=== PATIENT | female | born 1950 | race Caucasian/White ===

== ENCOUNTER 2016-08-15 15:49 | Inpatient (IN) | payer BC ==
--- NOTE | ~2016-08-15 | DS ---
Discharge Summary [facility] [address] [place]. [address] NAME: ALONSO RODRIGUEZ : 50 STATUS : DIS IN PAT#: [id number] AGE: 65 ADM/REG DATE : 08/15/16 MR#: [id number] REPORT SERV DATE: 08/27/16 DICTATED BY: JIMMY VILLALOBOS DATE: 08/26/16 REPORT STATUS : Draft TRANSCRIBED BY: SHLOMO DATE: 08/26/16 Data Collection from hospitalization DISCHARGE DIAGNOSES: 1. ST-elevation myocardial infarction-acute. 2. Coronary artery disease. 3. Hypertension. 4. Osteoarthritis. 5. Gout. 6. Tobacco abuse. CONSULTATION: Dr. Xiang Menchaca. PROCEDURES PERFORMED: 1. Cardiac catheterization, 08/15/2016. 2. Median sternotomy, extracorporeal circulation, emergent coronary artery bypass grafting x3, reverse greater saphenous vein graft to the obtuse marginal #1, reverse greater saphenous vein graft to the posterior descending artery, reverse greater saphenous vein graft to the posterolateral branch, transesophageal echocardiogram, endoscopic vein harvest from the right leg, rigid external fixation of the sternum, Prevena dressing placement, 08/16/2016. MEDICATIONS: ProAir two puffs via inhaler every four hours as needed, Cordarone 200 mg daily, artificial tears one to two drops as needed for dry eyes, Ecotrin 325 mg daily, Lipitor 80 mg at bedtime, Plavix 75 mg daily, colchicine 0.6 mg as needed, Diflucan 150 mg as instructed, [place] 10/325 one tablet every six hours as needed, Claritin 10 mg daily, Toprol-XL 25 mg daily, Theragran-M one tablet daily, Sterapred DS as instructed. CONDITION AT DISCHARGE: Stable. DISPOSITION: The patient was discharged home on a low-sodium, low-cholesterol, cardiac diet with activities as instructed. She would follow up with Dr. Xiang Menchaca, 09/08/[address] Jimmy Villalobos, 09/15/2016. She would follow up with Dr. Adilson Pop, 09/08/2016 and would follow up at [facility], 09/30/2016. HOSPITAL COURSE: This is a 65-year-old female, who had been seen in April of this year with severe hypertension, tobacco use, and tachycardia. She was advised to stop smoking and have a cardiac workup performed, including an echocardiogram as well as a nuclear stress test. The patient was seen by Dr. Xiang Menchaca. She had been started on clonidine. The patient had admitted that she hates doctors, dentist, and [facility]. She was concerned that she had some type of serious underlying cardiac problem and was afraid to deal with it. She came to the hospital at this time after developing the sudden onset of upper chest discomfort radiating to both arms while shopping with her daughter. She went home and tried lying down to rest and the symptoms did not improve. EMS was called. They gave her oxygen and sublingual nitroglycerin and her symptoms promptly subsided. Her EKG was negative. In the emergency room, she was given additional nitrates for ongoing chest complaints. She was currently pain free, but very anxious. She was felt to have had a non- ST-elevation myocardial infarction. It was felt that she would need to undergo a cardiac Discharge Summary [address] [address] NAME: ALONSO RODRIGUEZ : 50 STATUS : DIS IN PAT#: [id number] AGE: 65 ADM/REG DATE : 08/15/16 MR#: [id number] REPORT SERV DATE: 08/27/16 DICTATED BY: JIMMY VILLALOBOS DATE: 08/26/16 REPORT STATUS : Draft TRANSCRIBED BY: SHLOMO DATE: 08/26/16 catheterization. She was admitted to the hospital at this time for further evaluation and treatment. Upon admission, beta-aftab was continued with Lopressor. Xanax was added for anxiety controlled. She claims that she is prone to have a panic attack under certain conditions. She was taken to the cardiac dental laboratory supervisor by Dr. David Brown, where she underwent the above-mentioned procedure. She tolerated this well and there were no complications. The cardiac catheterization revealed severe two-vessel disease with thrombus in the right coronary artery and near-complete occlusion of the right coronary artery as well. She was placed back on heparin and nitroglycerin. Her chest pain continued. She had ongoing chest pain with ST-segment changes. It was felt that the patient would need to undergo coronary artery bypass grafting. She was taken to the operating room, where she underwent the above- mentioned procedure. She tolerated this well and there were no complications. On postop day one, there were no major issues off pressors. She was up sitting in a chair. She had decreased urine output. She had minimal response to diuretics overnight. Blood pressure was controlled. Over the next couple of days, she continued to progress. There was not much output from the mediastinal drains. Pacing wires and mediastinal drain were discontinued. We encouraged her to mobilize. FiO2 was being weaned. Discharge planning was performed. Her rhythm was stable. She was able to mobilize independently. On 08/20/2016, she had no major issues. She did complain of pain in the right big toe. Potassium level was low secondary to diuresis. She continued to do well. We encouraged her to stop smoking. Discharge instructions were given. Due to her improved and stable condition, she was discharged home with the above-stated instructions. Information collected by: Gabby Longoria I submit the above information as my discharge summary. TG/MODL Jimmy Villalobos MD / [id number] CC: Justina Jimenez BRITTANY BAXTER
--- NOTE | ~2016-08-15 | OP ---
Record Of Operation [facility] [address] [place]. [address] NAME: ALONSO RODRIGUEZ : 50 STATUS : ADM IN PAT#: [id number] AGE: 65 ADM/REG DATE : 08/15/16 MR#: [id number] REPORT SERV DATE: 08/16/16 DICTATED BY: JIMMY VILLALOBOS DATE: 08/16/16 REPORT STATUS : Draft TRANSCRIBED BY: MODL DATE: 08/16/16 DATE OF PROCEDURE: 08/16/2016 PREOPERATIVE DIAGNOSES: 1. ST elevation myocardial infarction. 2. Severe two-vessel coronary artery disease. 3. Hypertension. 4. Hyperlipidemia. 5. Tobacco abuse. 6. Morbid obesity. POSTOPERATIVE DIAGNOSES: 1. ST elevation myocardial infarction. 2. Severe two-vessel coronary artery disease. 3. Hypertension. 4. Hyperlipidemia. 5. Tobacco abuse. 6. Morbid obesity. OPERATION PROCEDURE PERFORMED: 1. Median sternotomy. 2. Extracorporeal circulation. 3. Emergent coronary artery bypass grafting x3, reverse greater saphenous vein graft to obtuse marginal #1, reverse greater saphenous vein graft to posterior descending artery, reverse greater saphenous vein graft to posterolateral branch. 4. UMM. 5. Endoscopic vein harvest, right leg. 6. Rigid external fixation of the sternum. 7. Prevena dressing placement. SURGEONS: Jimmy Villalobos MD ASSISTANTS: Jose Amezcua. ANESTHESIOLOGIST: Kobe Aviles M.D. COMPLICATIONS: None. TUBES AND DRAINS: A 32 straight chest tube under the sternum, ventricular pacing wires. POSTOPERATIVE CONDITION: Stable to CVICU. INTRAOPERATIVE FINDINGS: Transesophageal echo, there was normal function, trace MR, no AI, no in intraoperative findings. There was no LAD disease, therefore, the ROBERTSON was not used. Record Of [facility] [address] [place]. [address] NAME: ALONSO RODRIGUEZ : 50 STATUS : ADM IN PAT#: [id number] AGE: 65 ADM/REG DATE : 08/15/16 MR#: [id number] REPORT SERV DATE: 08/16/16 DICTATED BY: JIMMY VILLALOBOS DATE: 08/16/16 REPORT STATUS : Draft TRANSCRIBED BY: MODL DATE: 08/16/16 DETAILS OF CARDIOPULMONARY BYPASS GRAFTIN. Graft #1; reverse greater saphenous vein graft to obtuse marginal #1, this was 1.5 mm target. 2. Graft #2; reverse greater saphenous vein graft to posterior descending artery. This was diffusely diseased 2 mm target. 3. Graft #3; reverse greater saphenous vein graft to posterolateral branch. This was 2 mm excellent target. The PDA was diffusely diseased. There were excellent Doppler signals pre and post protamine. DETAILS OF STERNAL PLATING: Three sternal plates were used. One 100 degree plate in the manubrium, four 16 mm screws were used. One X plate on the sternum, eight 14 mm screws were used. One box plate, four 14 mm screws were used. INDICATIONS FOR PROCEDURE: Ms. Rodriguez is a 65-year-old, morbidly obese, smoker, with hypertension, and hyperlipidemia, who presented to the hospital with what appeared to be a STEMI. She had ongoing chest pain with a rise in her troponin and was taken urgently to the laborer tanbark. Cardiac catheterization revealed severe two=vessel disease with thrombus in the right coronary artery and a near complete occlusion of the right coronary artery as well. She was placed back on heparin and nitroglycerin, her chest pain continued and she had ongoing pain with ST-segment changes. A decision was made therefore for the patient to go to the operating room. The patient was seen and evaluated. Risks, benefits, and alternatives were discussed including, but not limited to, bleeding, infection, stroke, , heart attack, need for future operations. All questions were answered. Her STS morbidity and mortality scores were discussed with her as well. The total mortality less than 5%, total morbidity less than 20%. DETAILS OF PROCEDURE: The patient was brought to the operating room, placed supine on the operating room table. After satisfactory induction of general endotracheal anesthesia, she was prepped and draped in usual sterile fashion. Working simultaneously, a median sternotomy was performed while endoscopic vein harvest was performed from the right leg. Skin and subcutaneous tissues were divided, clavipectoral fascia was divided. The sternum was divided in the midline, sternal saw was used for that. Hemostasis was obtained along the sternal edges. A sternal retractor was placed. Thymic tissue was divided up to the innominate vein. Pericardium was opened in the midline and along the diaphragm. Pericardial well was created. Systemic heparinization was achieved. Ascending aortic cannulation was achieved through dual pursestring at the base of the innominate artery. Dual stage venous cannula was placed through a pursestring in the right atrial appendage. Antegrade root vent cardioplegia tack was placed. The vein was brought up, inspected, and prepared for bypass. Cardiopulmonary bypass was initiated after documentation of an adequate ACT. The targets were inspected. The targets were as mentioned in the findings. The cross-clamp was brought up, the heart was arrested with cold antegrade cardioplegia, switching to cold antegrade cardioplegia every 15 to 20 minutes throughout the remainder of cross clamp. The grafts were performed as follows; saphenous vein grafts were anastomosed to the PDA, the PLV, and the obtuse marginal #1 using 8-0 Surgipro. The proximal anastomoses were performed after filling the heart, cutting the vein to length, spatulating, and proximal aortotomies were performed with 11 blade and a 5.2 mm punch. The proximal anastomoses were constructed with 6-0 Prolene and vein markers were placed. The grafts were Record Of Operation [address] [place]. [address] NAME: ALONSO RODRIGUEZ : 50 STATUS : ADM IN PAT#: [id number] AGE: 65 ADM/REG DATE : 08/15/16 MR#: [id number] REPORT SERV DATE: 08/16/16 DICTATED BY: JIMMY VILLALOBOS DATE: 08/16/16 REPORT STATUS : Draft TRANSCRIBED BY: SHLOMO DATE: 08/16/16 de-aired. The cross-clamp was removed. Ventricular pacing wires were placed and the patient returned to normal sinus rhythm, she was able to be weaned from cardiopulmonary bypass without incident. She was weaned on 5 mcg/kilogram/minute of dobutamine. The dobutamine was weaned to 2.5. Protamine was administered. The patient was decannulated. All cannulation sites were oversewn with 4-0 Prolene. Hemostasis was obtained. The pericardium was unable to be closed. The aortic tissue was closed over the ascending aorta. A 32-Tongan chest tube was placed under the sternum. The sternum was brought back together with stainless steel sternal wires, some of these were double wires. The pectoral fascial flaps were raised in order to allow the SternaLock Jerome plate to be placed. A 100 degree plate was placed in the manubrium, an X plate, and a box plate were placed in the body of the sternum. 14 mm screws were used for the sternum, 16 mm screws were used for manubrium. Clavipectoral fascia was reapproximated using a running #1 StrataFix. Subcutaneous tissues were closed using running #1 StrataFix. The skin closed with 2-0 Quill. Prevena dressing was placed. The patient was transferred to CVICU in critical, stable condition. [facility]MC/MODL Jimmy Villalobos MD / [id number] CC: Xiang Menchaca D.O.
--- NOTE | ~2016-08-15 | HP ---
History And Physical [place] [id number] [place]. [address] NAME: ALONSO RODRIGUEZ : 50 STATUS : ADM IN [facility]#: [id number] AGE: 65 ADM/REG DATE : 08/15/16 MR#: [id number] REPORT SERV DATE: 08/16/16 DICTATED BY: XIANG MENCHACA DATE: 08/16/16 REPORT STATUS : Draft TRANSCRIBED BY: SHLOMO DATE: 08/16/16 DATE OF ADMISSION: 08/15/2016 REASON FOR ADMISSION: Non-STEMI. HISTORY OF PRESENT ILLNESS: A 65-year-old patient who I saw for the first time as a new patient back on 04/23 of this year. At that time, she had severe hypertension, was smoking, was tachycardic, and she was advised to quit smoking and have cardiac workup performed including an echocardiogram as well as a nuclear stress test. I also started her on clonidine 0.1 b.i.d. She readily admits that she "hates doctors and dentists and the Healthcare System and she is concerned that she has some type of serious underlying cardiac problem and is afraid to deal with it." She came to the hospital after developing sudden onset of upper chest discomfort radiating to both arms while shopping with her daughter. She went home tried laying down to rest and symptoms did not improve, so EMS was called. They gave her oxygen and sublingual nitroglycerin and her symptoms promptly subsided. Her EKG is negative. In the emergency room, she was given additional nitrates for ongoing chest complaints and admitted to the Hospitalist Service. She is currently pain free, but very anxious. She tells me she did not tolerate the clonidine well at all developing severe bilateral shoulder and knee pain. PAST SURGICAL HISTORY: Cholecystectomy, tonsillectomy, adenoidectomy, bilateral tubal ligation. She has had D+C x2. She has had bilateral carpal tunnel surgeries. PAST MEDICAL HISTORY: 1. Hypertension. 2. Ongoing smoking. She has about a 50-year smoking history, was smoking three packs per day at her peak, then subsequently cut back to two packs per day, now it is currently one-half pack per day. 3. Unknown cholesterol status. 4. Osteoarthritis. She had severe neck pain, has to sleep on her left side. She relies on big doses of Motrin. When I first met her, she was taking 800 mg of Motrin t.i.d. daily. I advised her of the possible adverse affects of that regimen, so she cut back to 800 b.i.d. The patient subsequently called my office and canceled her appointments. She was afraid that they would be abnormal and further testing would be needed. SOCIAL HISTORY: She is originally from [place]. She smokes. Denies alcohol. Denies illicit drugs. Currently living at her daughter's house. MEDICATIONS: Pnks-zvv-tthqcer medicines include Motrin. The patient is . History And Physical [address] [place]. [address] NAME: ALONSO RODRIGUEZ : 50 STATUS : ADM IN [facility]#: [id number] AGE: 65 ADM/REG DATE : 08/15/16 MR#: [id number] REPORT SERV DATE: 08/16/16 DICTATED BY: XIANG MENCHACA DATE: 08/16/16 REPORT STATUS : Draft TRANSCRIBED BY: SHLOMO DATE: 08/16/16 I reviewed her chart. We discussed the case with the patient's nurse, Manish. PHYSICAL EXAMINATION: VITAL SIGNS: Blood pressure 170/81, heart rate 100. GENERAL: Pleasant overweight, in no distress. HEENT: Unremarkable. NECK: The neck veins are flat. No bruits. No meningismus. LUNGS: Clear. CARDIAC: Heart sounds are regular. No obvious murmur. She does have some end-expiratory wheezing on auscultation of her back. She does use a ProAir inhaler, which is not on her list currently. EKG was reviewed. IMPRESSION: 1. Xmp-KT-huneffhdl myocardial infarction. 2. Anxiety syndromes. 3. Noncompliance due to anxiety syndrome. 4. Heavy tobacco history. 5. Multiple risk factors for coronary artery disease. 6. Poorly controlled hypertension. 7. Obesity. PLAN: Echocardiogram and subsequently left heart catheterization on Wednesday. Check carotids as well. Add Procardia XL. Continue beta-aftab with Lopressor 50 q.6h for now and add some Xanax for anxiety control. She claims that she is prone to have a "panic attack" under certain conditions. We did discuss the risks, benefits, techniques of a cardiac catheterization despite her reluctance to want to hear the details. She tells me that if she knows how the test is performed, she is likely to have a panic attack. I told her it was medical legally important to for her to understand what procedure she was about to undergo and I could not proceed unless she would listen and agree. She eventually did. PCP is Martha Shaver. I originally saw this patient back in April and she was referred to me for management of hypertension and evaluation of cardiac complaints. She had a bronchitic cough at that time. She told me that she had 14 siblings and two with heart problems. She reports multiple allergies primarily to antibiotics, sulfa, Augmentin, Cefzil, and does not tolerate clonidine well. She also reports a Levaquin allergy. When I saw her in the office, her blood pressure of 168/110 with a heart rate of 109, BMI was 38. SAT/SHLOMO Xiang Menchaca D.O. History And Physical [address] [address] NAME: ALONSO RODRIGUEZ : 50 STATUS : ADM IN [facility]#: [id number] AGE: 65 ADM/REG DATE : 08/15/16 MR#: [id number] REPORT SERV DATE: 08/16/16 DICTATED BY: XIANG MENCHACA DATE: 08/16/16 REPORT STATUS : Draft TRANSCRIBED BY: SHLOMO DATE: 08/16/16 / [id number] CC: Xiang Menchaca D.O.
--- NOTE | ~2016-08-15 | OP ---
Record Of Operation [facility] [address] [place]. [address] NAME: ALONSO RODRIGUEZ : 50 STATUS : ADM IN PAT#: [id number] AGE: 65 ADM/REG DATE : 08/15/16 MR#: [id number] REPORT SERV DATE: 08/16/16 DICTATED BY: RENETTA BROWN DATE: 08/16/16 REPORT STATUS : Draft TRANSCRIBED BY: MODNola DATE: 08/16/16 DATE OF PROCEDURE: 08/15/2016 CARDIAC CATHETERIZATION REPORT CAKE MAKER: Renetta Brown M.D. INDICATION FOR PROCEDURE: Acute myocardial infarction. POSTOPERATIVE INDICATION: Acute myocardial infarction. DESCRIPTION OF PROCEDURE: The patient was brought to the superintendent geophysical laboratory in a postabsorptive state with informed consent signed for cardiac catheterization. The right inguinal area was sterilely draped and prepped. Local anesthesia was accomplished with Xylocaine. A 6-Ukrainian sheath was placed in the right femoral artery without difficulty. Using a 4 left Joseph catheter and subsequently a 4 right Joseph catheter, the coronary arteries were selected and engaged angiographically. Then, using a 6-Ukrainian pigtail catheter, a left ventriculogram was performed utilizing 12 mL per second for 3 seconds for a total of 36 mL of Isovue, and angiographically in the single . End of the procedure, the catheter was affixed in place, and the patient was transferred to the CCU on a nitroglycerin drip. HEMODYNAMICS: The patient's left ventricular end-diastolic pressure was measured at 32 mmHg. Hemodynamics were otherwise normal, there was no gradient or pullback across the aortic valve. Coronary arteriograms: The left main coronary artery was normal. The left anterior descending artery had luminal irregularities only. The left circumflex artery demonstrated a proximal 90% stenosis, but with ADELINA-3 flow. No other blockages were noted. The right coronary artery, which was a large dominant vessel, but was normal in its proximal portion, but had a 90% mid-vessel lesion, with what appeared to be thrombus associated. More distal, there was a discrete 90% lesion, and then subsequently another discrete 80% to 90% lesion at the bifurcation. Left ventriculogram demonstrated ejection fraction of 65% with inferior wall hypokinesis. IMPRESSION: Severe two-vessel coronary artery disease, with preserved left ventricular function. The patient was pain-free, stable blood pressure and heart rate, and rhythm was stable. The decision was made to continue the patient on nitroglycerin, by continuos infusion, remove the sheaths, resume heparin, and aggressive control of the heart rate and blood pressure on beta-blockers. Consultation was obtained with Dr. Demarco for consideration of coronary artery bypass grafting evaluation in the a.m. TR/MODL Record Of [address] [address] NAME: ALONSO RODRIGUEZ : 50 STATUS : ADM IN PAT#: [id number] AGE: 65 ADM/REG DATE : 08/15/16 MR#: [id number] REPORT SERV DATE: 08/16/16 DICTATED BY: RENETTA BROWN DATE: 08/16/16 REPORT STATUS : Draft TRANSCRIBED BY: SHLOMO DATE: 08/16/16 Renetta Brown M.D. / [id number] CC: Xiang Menchaca D.O.
[2016-08-15 16:24] LABS: BASOPHILS 0.5 %; BASOPHILS ABSOLUTE 0.06 10/3/uL (0.0-0.16); EOSINOPHILS 0.4 %; EOSINOPHILS ABSOLUTE 0.05 10/3/uL (0.0-0.53); HEMATOCRIT 38.1 % (36.0-48.0); HEMOGLOBIN 13.3 g/dL (12.0-16.0); IMMATURE GRANULOCYTES 0.3 %; IMMATURE GRANULOCYTES ABSOLUTE 0.04 10/3/uL (0.0-0.11); LYMPHOCYTES 13.4 %; LYMPHOCYTES ABSOLUTE 1.58 10/3/uL (0.67-4.30); MANUAL DIFF NO %; MEAN CORPUS HGB CONC 34.9 g/dL (32.0-36.0); MEAN CORPUSCULAR HEMOGLOB 31.8 pg (26.0-34.0); MEAN CORPUSCULAR VOLUME 91.1 fL (80-100); MEAN PLATELET VOLUME 9.9 fL (9.2-13.0); MONOCYTES 4.9 %; MONOCYTES ABSOLUTE 0.58 10/3/uL (0.21-1.20); NEUTROPHILS 80.5 %; NEUTROPHILS ABSOLUTE 9.48 10/3/uL (2.02-8.40); PLATELET COUNT 468 10/3/uL (150-400); RBC DISTRIBUTION WIDTH 12.9 % (12.0-16.0); RED CELL COUNT 4.18 10/6/uL (4.0-5.6); WHITE BLOOD CELLS 11.8 10/3/uL (4.5-10.5)
[2016-08-15 16:32] LABS: INTERNATIONAL NORMAL RATI 1.1 UNITS (-); PARTIAL THROMBO TIME 31.4 SEC (22.5-37.2); PROTIME (NOT ORD) 13.7 SEC (12.0-14.5)
[2016-08-15 16:42] LABS: BUN (BLOOD UREA NITROGEN) 14 MG/DL (6-23); CALCIUM, SERUM 9.6 MG/DL (8.5-10.4); CHEST PAIN PROFILE TAT 0 Hrs 22 Mins; CHLORIDE, SERUM 102 MMOL/L (96-112); CO2 (CARBON DIOXIDE) 28 MMOL/L (24-34); CREATININE 0.73 MG/DL (0.55-1.02); GFR AFRICAN AMERICAN 100 ML/MIN (>=60); GFR NON AFRICAN AMERICAN 86 ML/MIN (>=60); GLUCOSE, SERUM 108 MG/DL (60-99); POTASSIUM, SERUM 4.4 MMOL/L (3.5-5.3); SODIUM, SERUM 136 MMOL/L (135-148); TROPONIN I 1.11 NG/ML (<0.05)
[2016-08-15] MEDS ORDERED: EDARBI80 MG PO (17:14)
[2016-08-15] MEDS ORDERED: CLARIT10 PO (17:14)
[2016-08-15] MEDS ORDERED: IBU800 PO (17:14)
[2016-08-15] MEDS ORDERED: PROAIR HFA INH (17:15)
[2016-08-15] MEDS ORDERED: THERGRANM PO (17:15)
[2016-08-15] MEDS ORDERED: REFRESH OPH SO0.3 ML OPH (17:17)
[2016-08-15 23:15] LABS: BASOPHILS 0.3 %; BASOPHILS ABSOLUTE 0.04 10/3/uL (0.0-0.16); EOSINOPHILS 0.2 %; EOSINOPHILS ABSOLUTE 0.02 10/3/uL (0.0-0.53); HEMATOCRIT 35.4 % (36.0-48.0); HEMOGLOBIN 12.6 g/dL (12.0-16.0); IMMATURE GRANULOCYTES 0.4 %; IMMATURE GRANULOCYTES ABSOLUTE 0.05 10/3/uL (0.0-0.11); LYMPHOCYTES 16.8 %; LYMPHOCYTES ABSOLUTE 2.19 10/3/uL (0.67-4.30); MEAN CORPUS HGB CONC 35.6 g/dL (32.0-36.0); MEAN CORPUSCULAR HEMOGLOB 32.5 pg (26.0-34.0); MEAN CORPUSCULAR VOLUME 91.2 fL (80-100); MEAN PLATELET VOLUME 9.9 fL (9.2-13.0); MONOCYTES 4.6 %; NEUTROPHILS 77.7 %; NEUTROPHILS ABSOLUTE 10.14 10/3/uL (2.02-8.40); PLATELET COUNT 485 10/3/uL (150-400); RBC DISTRIBUTION WIDTH 12.8 % (12.0-16.0); RED CELL COUNT 3.88 10/6/uL (4.0-5.6)
[2016-08-15 23:19] LABS: MANUAL DIFF NO %
[2016-08-15 23:31] LABS: BUN (BLOOD UREA NITROGEN) 13 MG/DL (6-23); CALCIUM, SERUM 9.2 MG/DL (8.5-10.4); CHLORIDE, SERUM 99 MMOL/L (96-112); CK-MB 54.1 NG/ML; CO2 (CARBON DIOXIDE) 28 MMOL/L (24-34); CPK 545 U/L (0-200); CREATININE 0.74 MG/DL (0.55-1.02); GFR AFRICAN AMERICAN 99 ML/MIN (>=60); GFR NON AFRICAN AMERICAN 85 ML/MIN (>=60); POTASSIUM, SERUM 4.4 MMOL/L (3.5-5.3); SODIUM, SERUM 134 MMOL/L (135-148)
[2016-08-15 23:32] LABS: CKMB INDEX (NOT ORD) 9.9; GLUCOSE, SERUM 142 MG/DL (60-99); TROPONIN I 9.68 NG/ML (<0.05)
[2016-08-16 03:57] LABS: BASOPHILS 0.4 %; BASOPHILS ABSOLUTE 0.04 10/3/uL (0.0-0.16); EOSINOPHILS 0.3 %; EOSINOPHILS ABSOLUTE 0.03 10/3/uL (0.0-0.53); HEMATOCRIT 35.1 % (36.0-48.0); HEMOGLOBIN 12.3 g/dL (12.0-16.0); IMMATURE GRANULOCYTES 0.4 %; IMMATURE GRANULOCYTES ABSOLUTE 0.04 10/3/uL (0.0-0.11); LYMPHOCYTES 20.9 %; LYMPHOCYTES ABSOLUTE 2.36 10/3/uL (0.67-4.30); MANUAL DIFF NO %; MEAN CORPUSCULAR HEMOGLOB 32.2 pg (26.0-34.0); MEAN CORPUSCULAR VOLUME 91.9 fL (80-100); MEAN PLATELET VOLUME 10.2 fL (9.2-13.0); MONOCYTES 7.4 %; MONOCYTES ABSOLUTE 0.84 10/3/uL (0.21-1.20); NEUTROPHILS 70.6 %; NEUTROPHILS ABSOLUTE 7.98 10/3/uL (2.02-8.40); PLATELET COUNT 483 10/3/uL (150-400); RBC DISTRIBUTION WIDTH 12.9 % (12.0-16.0); RED CELL COUNT 3.82 10/6/uL (4.0-5.6); WHITE BLOOD CELLS 11.3 10/3/uL (4.5-10.5)
[2016-08-16 04:10] LABS: CHOL/HDL RATIO(NOT ORDER) 5.3 (0-5); CHOLESTEROL 191 MG/DL (< 200); HDL CHOLESTEROL 36 MG/DL (> 49); LDL CHOLESTEROL 93 MG/DL (< 130); NON-HDL CHOLESTEROL 155 MG/DL (< 160); SGPT(ALT) 36 U/L (5-65); TRIGLYCERIDE 311 MG/DL (< 150)
[2016-08-16 07:28] LABS: INTERNATIONAL NORMAL RATI 1.1 UNITS (-); PROTIME (NOT ORD) 14.3 SEC (12.0-14.5)
[2016-08-16 08:43] LABS: A/G RATIO 0.9 (0.7-1.9); ALBUMIN 3.1 G/DL (3.5-5.0); ALKALINE PHOSPHATASE 61 U/L (45-117); CALCIUM, SERUM 9.1 MG/DL (8.5-10.4); CREATININE 0.75 MG/DL (0.55-1.02); GFR AFRICAN AMERICAN 97 ML/MIN (>=60); GFR NON AFRICAN AMERICAN 84 ML/MIN (>=60); GLOBULIN 3.4 G/DL (2.5-4.1); GLUCOSE, SERUM 122 MG/DL (60-99); IRON BINDING CAPACITY 278 MCG/DL (225-410); SGOT(AST) 95 U/L (5-40); TOTAL BILIRUBIN 0.5 MG/DL (0-1.2); TOTAL PROTEIN 6.5 G/DL (6.0-8.5)
[2016-08-16 08:49] LABS: BUN (BLOOD UREA NITROGEN) 13 MG/DL (6-23); CHLORIDE, SERUM 100 MMOL/L (96-112); CO2 (CARBON DIOXIDE) 24 MMOL/L (24-34); POTASSIUM, SERUM 4.5 MMOL/L (3.5-5.3); SODIUM, SERUM 135 MMOL/L (135-148)
[2016-08-16 09:39] LABS: BE (BASE EXCESS) -4.3 MEQ/L (0 +/- 2.5); CARBOXYHEMOGLOBIN 0.3 % (0-3); HCO3 (ACTUAL BICARBONATE) 20.4 MEQ/L (23-27); HEMOBLOGIN CONTENT 10.3 G/DL (12-16); INSTRUMENT SERIAL # 11843; METHEMOGLOBIN 0.8 % (0-3); MODE SIMV; O2 CONTENT 15.3 VOL% (18-24); PCO2 (CO2 TENSION) 36 MMHG (35-45); PO2 (O2 TENSION) 428 MMHG (79-93); SAMPLE Arterial; TIDAL VOLUME 650 ML; pH 7.37 (7.37-7.43)
[2016-08-16 11:25] LABS: HEMATOCRIT 26.9 % (36.0-48.0); HEMOGLOBIN 9.4 g/dL (12.0-16.0)
[2016-08-16 11:28] LABS: INTERNATIONAL NORMAL RATI 1.4 UNITS (-); PARTIAL THROMBO TIME 34.6 SEC (22.5-37.2)
[2016-08-16 11:34] LABS: BUN (BLOOD UREA NITROGEN) 14 MG/DL (6-23); CALCIUM, SERUM 8.6 MG/DL (8.5-10.4); CHLORIDE, SERUM 107 MMOL/L (96-112); CO2 (CARBON DIOXIDE) 28 MMOL/L (24-34); CREATININE 0.98 MG/DL (0.55-1.02); GFR AFRICAN AMERICAN 70 ML/MIN (>=60); GFR NON AFRICAN AMERICAN 61 ML/MIN (>=60); GLUCOSE, SERUM 70 MG/DL (60-99); POTASSIUM, SERUM 3.9 MMOL/L (3.5-5.3); SODIUM, SERUM 141 MMOL/L (135-148)
[2016-08-16 16:07] LABS: HEMOGLOBIN 10.4 g/dL (12.0-16.0)
[2016-08-16 16:08] LABS: HEMATOCRIT 29.7 % (36.0-48.0)
[2016-08-16 16:13] LABS: POTASSIUM, SERUM 4.6 MMOL/L (3.5-5.3)
[2016-08-16 20:44] LABS: HEMATOCRIT 28.7 % (36.0-48.0)
[2016-08-16 20:52] LABS: POTASSIUM, SERUM 4.7 MMOL/L (3.5-5.3)
[2016-08-17 03:49] LABS: BASOPHILS 0 %; BASOPHILS ABSOLUTE 0.01 10/3/uL (0.0-0.16); EOSINOPHILS 0 %; HEMATOCRIT 29.7 % (36.0-48.0); HEMOGLOBIN 10.2 g/dL (12.0-16.0); IMMATURE GRANULOCYTES 0.3 %; IMMATURE GRANULOCYTES ABSOLUTE 0.07 10/3/uL (0.0-0.11); LYMPHOCYTES 6.8 %; LYMPHOCYTES ABSOLUTE 1.41 10/3/uL (0.67-4.30); MEAN CORPUS HGB CONC 34.3 g/dL (32.0-36.0); MEAN CORPUSCULAR HEMOGLOB 31.9 pg (26.0-34.0); MEAN CORPUSCULAR VOLUME 92.8 fL (80-100); MEAN PLATELET VOLUME 10.3 fL (9.2-13.0); MONOCYTES 7.5 %; MONOCYTES ABSOLUTE 1.54 10/3/uL (0.21-1.20); NEUTROPHILS 85.4 %; NEUTROPHILS ABSOLUTE 17.58 10/3/uL (2.02-8.40); RBC DISTRIBUTION WIDTH 13.3 % (12.0-16.0)
[2016-08-17 03:52] LABS: MANUAL DIFF NO %; PLATELET COUNT 320 10/3/uL (150-400); WHITE BLOOD CELLS 20.6 10/3/uL (4.5-10.5)
[2016-08-17 03:58] LABS: INTERNATIONAL NORMAL RATI 1.3 UNITS (-); PROTIME (NOT ORD) 15.9 SEC (12.0-14.5)
[2016-08-17 04:07] LABS: CALCIUM, SERUM 8.7 MG/DL (8.5-10.4); CHLORIDE, SERUM 106 MMOL/L (96-112); GFR AFRICAN AMERICAN 61 ML/MIN (>=60); GFR NON AFRICAN AMERICAN 53 ML/MIN (>=60); GLUCOSE, SERUM 93 MG/DL (60-99); POTASSIUM, SERUM 4.5 MMOL/L (3.5-5.3); SODIUM, SERUM 138 MMOL/L (135-148)
[2016-08-17 04:08] LABS: BUN (BLOOD UREA NITROGEN) 22 MG/DL (6-23); CO2 (CARBON DIOXIDE) 19 MMOL/L (24-34)
[2016-08-17 09:46] LABS: HEMATOCRIT 30.7 % (36.0-48.0); HEMOGLOBIN 10.5 g/dL (12.0-16.0)
[2016-08-17 09:51] LABS: POTASSIUM, SERUM 4.2 MMOL/L (3.5-5.3)
[2016-08-17 16:10] LABS: HEMATOCRIT 29.5 % (36.0-48.0); HEMOGLOBIN 10.3 g/dL (12.0-16.0)
[2016-08-18 05:38] LABS: HEMATOCRIT 27.6 % (36.0-48.0); HEMOGLOBIN 9.6 g/dL (12.0-16.0); MEAN CORPUS HGB CONC 34.8 g/dL (32.0-36.0); MEAN PLATELET VOLUME 10.3 fL (9.2-13.0); PLATELET COUNT 311 10/3/uL (150-400); RBC DISTRIBUTION WIDTH 13.3 % (12.0-16.0)
[2016-08-18 05:40] LABS: MANUAL DIFF YES %; WHITE BLOOD CELLS 26.9 10/3/uL (4.5-10.5)
[2016-08-18 05:54] LABS: BUN (BLOOD UREA NITROGEN) 24 MG/DL (6-23); CALCIUM, SERUM 8.2 MG/DL (8.5-10.4); CHLORIDE, SERUM 100 MMOL/L (96-112); CO2 (CARBON DIOXIDE) 22 MMOL/L (24-34); CREATININE 0.88 MG/DL (0.55-1.02); GFR AFRICAN AMERICAN 80 ML/MIN (>=60); GFR NON AFRICAN AMERICAN 69 ML/MIN (>=60); POTASSIUM, SERUM 4.4 MMOL/L (3.5-5.3)
[2016-08-18 05:56] LABS: GLUCOSE, SERUM 138 MG/DL (60-99); SODIUM, SERUM 131 MMOL/L (135-148)
[2016-08-18 06:05] LABS: BAND NEUTROPHILS 6 %; LYMPHOCYTES 7 %; LYMPHOCYTES ABSOLUTE (CALC) 1.88 10/3/uL (0.67-4.30); MONOCYTES 7 %; MONOCYTES ABSOLUTE (CALC) 1.88 10/3/uL (0.21-1.20); NEUTROPHILS ABSOLUTE (CALC) 23.13 10/3/uL (2.02-8.40); PLATELET ESTIMATE ADQ (ADEQUATE); RBC MORPHOLOGY NORM (NORMAL); SEGMENTED NEUTROPHIL (0) 80 %; TOTAL NUCLEATED CELLS 100
[2016-08-19 07:04] LABS: BASOPHILS 0.1 %; BASOPHILS ABSOLUTE 0.02 10/3/uL (0.0-0.16); EOSINOPHILS 0.1 %; EOSINOPHILS ABSOLUTE 0.02 10/3/uL (0.0-0.53); HEMATOCRIT 26.8 % (36.0-48.0); HEMOGLOBIN 9.4 g/dL (12.0-16.0); IMMATURE GRANULOCYTES 0.6 %; IMMATURE GRANULOCYTES ABSOLUTE 0.12 10/3/uL (0.0-0.11); LYMPHOCYTES 10.1 %; LYMPHOCYTES ABSOLUTE 1.91 10/3/uL (0.67-4.30); MEAN CORPUS HGB CONC 35.1 g/dL (32.0-36.0); MEAN CORPUSCULAR VOLUME 91.2 fL (80-100); MEAN PLATELET VOLUME 10.7 fL (9.2-13.0); MONOCYTES 9.3 %; MONOCYTES ABSOLUTE 1.76 10/3/uL (0.21-1.20); NEUTROPHILS 79.8 %; NEUTROPHILS ABSOLUTE 15.15 10/3/uL (2.02-8.40); PLATELET COUNT 359 10/3/uL (150-400); RBC DISTRIBUTION WIDTH 13.2 % (12.0-16.0); RED CELL COUNT 2.94 10/6/uL (4.0-5.6)
[2016-08-19 07:06] LABS: MANUAL DIFF NO %
[2016-08-19 07:08] LABS: BUN (BLOOD UREA NITROGEN) 24 MG/DL (6-23); CALCIUM, SERUM 8.6 MG/DL (8.5-10.4); CHLORIDE, SERUM 102 MMOL/L (96-112); CO2 (CARBON DIOXIDE) 25 MMOL/L (24-34); CREATININE 0.81 MG/DL (0.55-1.02); GFR AFRICAN AMERICAN 88 ML/MIN (>=60); GFR NON AFRICAN AMERICAN 76 ML/MIN (>=60); GLUCOSE, SERUM 129 MG/DL (60-99); POTASSIUM, SERUM 3.6 MMOL/L (3.5-5.3); SODIUM, SERUM 135 MMOL/L (135-148)
[2016-08-20 06:12] LABS: BUN (BLOOD UREA NITROGEN) 20 MG/DL (6-23); CALCIUM, SERUM 8.5 MG/DL (8.5-10.4); CHLORIDE, SERUM 101 MMOL/L (96-112); CO2 (CARBON DIOXIDE) 28 MMOL/L (24-34); CREATININE 0.81 MG/DL (0.55-1.02); GFR AFRICAN AMERICAN 88 ML/MIN (>=60); GFR NON AFRICAN AMERICAN 76 ML/MIN (>=60); GLUCOSE, SERUM 111 MG/DL (60-99); POTASSIUM, SERUM 3.3 MMOL/L (3.5-5.3); SODIUM, SERUM 136 MMOL/L (135-148)
[2016-08-20 06:13] LABS: BASOPHILS 0.2 %; BASOPHILS ABSOLUTE 0.04 10/3/uL (0.0-0.16); EOSINOPHILS 0.2 %; EOSINOPHILS ABSOLUTE 0.04 10/3/uL (0.0-0.53); HEMATOCRIT 26.7 % (36.0-48.0); HEMOGLOBIN 9.4 g/dL (12.0-16.0); IMMATURE GRANULOCYTES 0.6 %; LYMPHOCYTES 12.2 %; LYMPHOCYTES ABSOLUTE 2.11 10/3/uL (0.67-4.30); MEAN CORPUS HGB CONC 35.2 g/dL (32.0-36.0); MEAN CORPUSCULAR HEMOGLOB 32.1 pg (26.0-34.0); MEAN CORPUSCULAR VOLUME 91.1 fL (80-100); MONOCYTES 11.2 %; MONOCYTES ABSOLUTE 1.94 10/3/uL (0.21-1.20); NEUTROPHILS 75.6 %; NEUTROPHILS ABSOLUTE 13.03 10/3/uL (2.02-8.40); PLATELET COUNT 439 10/3/uL (150-400); RBC DISTRIBUTION WIDTH 13.4 % (12.0-16.0); RED CELL COUNT 2.93 10/6/uL (4.0-5.6); WHITE BLOOD CELLS 17.3 10/3/uL (4.5-10.5)
[2016-08-20 06:15] LABS: MANUAL DIFF NO %
[2016-08-20 09:19] LABS: BUN (BLOOD UREA NITROGEN) 19 MG/DL (6-23); CALCIUM, SERUM 8.8 MG/DL (8.5-10.4); CHLORIDE, SERUM 102 MMOL/L (96-112); CO2 (CARBON DIOXIDE) 29 MMOL/L (24-34); CREATININE 0.81 MG/DL (0.55-1.02); GFR AFRICAN AMERICAN 88 ML/MIN (>=60); GFR NON AFRICAN AMERICAN 76 ML/MIN (>=60); GLUCOSE, SERUM 118 MG/DL (60-99); SODIUM, SERUM 136 MMOL/L (135-148)
[2016-08-20] MEDS ORDERED: FLUCON150 PO (12:25)
[2016-08-20] MEDS ORDERED: PLAVIX PO (12:26)
[2016-08-20] MEDS ORDERED: COLCH6 PO (12:26)
[2016-08-20] MEDS ORDERED: STERAPRED DS10 MG (12:28)
[2016-08-20] MEDS ORDERED: NORCO1 TAB PO (12:29)
[2016-08-20] MEDS ORDERED: LIPITOR80 MG PO (12:30)
[2016-08-20] MEDS ORDERED: ASAEC PO (12:30)
[2016-08-20] MEDS ORDERED: CORDARONE PO (12:31)
[2016-08-20] MEDS ORDERED: TOPXL25 PO (12:31)
== END 2016-08-20 15:37 | disposition home or self-care (01) | DRG 234 ==
LOC: ER 15:49 → 5NO 18:35 → SSU2 23:42 → CCU 08-16 00:35 → CVICU 08-16 05:39 → 5NO 08-17 13:09
PROVIDERS: Anesthesiology; Emergency Medicine; Internal Medicine; Nurse Practitioner Family; Thoracic Surgery (Cardiothoracic Vascular Surgery)
PROC: 4A023N7 Measurement of Cardiac Sampling and Pressure, Left Heart, Percutaneous Approach (ICD-10-PCS; principal; 2016-08-15)
PROC: B2111ZZ Fluoroscopy of Multiple Coronary Arteries using Low Osmolar Contrast (ICD-10-PCS; 2016-08-15)
PROC: B2151ZZ Fluoroscopy of Left Heart using Low Osmolar Contrast (ICD-10-PCS; 2016-08-15)
PROC: 06BP4ZZ Excision of Right Saphenous Vein, Percutaneous Endoscopic Approach (ICD-10-PCS; 2016-08-16)
PROC: 0PH000Z Insertion of Rigid Plate Internal Fixation Device into Sternum, Open Approach (ICD-10-PCS; 2016-08-16)
PROC: 021209W Bypass Coronary Artery, Three Arteries from Aorta with Autologous Venous Tissue, Open Approach (ICD-10-PCS; 2016-08-16)
PROC: B246ZZ4 Ultrasonography of Right and Left Heart, Transesophageal (ICD-10-PCS; 2016-08-16)
PROC: 02100Z9 Bypass Coronary Artery, One Artery from Left Internal Mammary, Open Approach (ICD-10-PCS; 2016-08-16 05:40)
DX: I21.4 Non-ST elevation (NSTEMI) myocardial infarction (principal); E66.01 Morbid (severe) obesity due to excess calories; F17.210 Nicotine dependence, cigarettes, uncomplicated; I10 Essential (primary) hypertension; Z90.49 Acquired absence of other specified parts of digestive tract; M19.90 Unspecified osteoarthritis, unspecified site; F41.9 Anxiety disorder, unspecified; Z68.37 Body mass index [BMI] 37.0-37.9, adult
CPT/HCPCS: 36415; 71010; 71020; 80048; 80053; 80061; 82330; 82550; 82553; 82803; 82805; 82947; 82962; 83036; 83550; 83735; 84132; 84295; 84484; 85014; 85018; 85025; 85347; 85610; 85730; 86850; 86900; 86901; 86920; 87641; 93005; 93312; 93320; 93325; 93458; 94002; 94640; 94660; 94770; 96365; 96375; 99285; A9270-GY; C1713; C1769; C1776; J0690; J1644; J1940; J2150; J2250; J2370; J2405; J2440; J2720; J3010; J3370; J3475; J3480; P9045; P9047; Q9967

== ENCOUNTER 2016-08-23 10:48 | Emergency (ER) | payer BC ==
[~2016-08-23 10:48] MED LIST: ASAEC PO; CLARIT10 PO; COLCH6 PO; CORDARONE PO; EDARBI80 MG PO; FLUCON150 PO; IBU800 PO; LIPITOR80 MG PO; NORCO1 TAB PO; PLAVIX PO; PROAIR HFA INH; REFRESH OPH SO0.3 ML OPH; STERAPRED DS10 MG; THERGRANM PO; TOPXL25 PO
[2016-08-23 11:46] LABS: BASOPHILS 0.3 %; BASOPHILS ABSOLUTE 0.05 10/3/uL (0.0-0.16); EOSINOPHILS 0.2 %; EOSINOPHILS ABSOLUTE 0.04 10/3/uL (0.0-0.53); HEMATOCRIT 29.5 % (36.0-48.0); IMMATURE GRANULOCYTES 1.6 %; LYMPHOCYTES 7.7 %; LYMPHOCYTES ABSOLUTE 1.45 10/3/uL (0.67-4.30); MEAN CORPUS HGB CONC 33.9 g/dL (32.0-36.0); MEAN CORPUSCULAR HEMOGLOB 31.3 pg (26.0-34.0); MEAN CORPUSCULAR VOLUME 92.2 fL (80-100); MONOCYTES 5.8 %; MONOCYTES ABSOLUTE 1.09 10/3/uL (0.21-1.20); NEUTROPHILS 84.4 %; NEUTROPHILS ABSOLUTE 15.91 10/3/uL (2.02-8.40); PLATELET COUNT 633 10/3/uL (150-400); RBC DISTRIBUTION WIDTH 13.7 % (12.0-16.0); WHITE BLOOD CELLS 18.8 10/3/uL (4.5-10.5)
[2016-08-23 11:47] LABS: MANUAL DIFF NO %
[2016-08-23 12:01] LABS: A/G RATIO 0.8 (0.7-1.9); ALBUMIN 2.9 G/DL (3.5-5.0); ALKALINE PHOSPHATASE 65 U/L (45-117); BUN (BLOOD UREA NITROGEN) 9 MG/DL (6-23); CALCIUM, SERUM 8.9 MG/DL (8.5-10.4); CHLORIDE, SERUM 104 MMOL/L (96-112); CO2 (CARBON DIOXIDE) 29 MMOL/L (24-34); CREATININE 0.82 MG/DL (0.55-1.02); GFR AFRICAN AMERICAN 87 ML/MIN (>=60); GFR NON AFRICAN AMERICAN 75 ML/MIN (>=60); GLOBULIN 3.5 G/DL (2.5-4.1); GLUCOSE, SERUM 119 MG/DL (60-99); POTASSIUM, SERUM 3.5 MMOL/L (3.5-5.3); SGOT(AST) 31 U/L (5-40); SGPT(ALT) 46 U/L (5-65); SODIUM, SERUM 136 MMOL/L (135-148); TOTAL BILIRUBIN 0.3 MG/DL (0-1.2); TOTAL PROTEIN 6.4 G/DL (6.0-8.5)
== END 2016-08-23 14:00 | disposition home or self-care (01) ==
LOC: ER 10:48
PROVIDERS: Emergency Medicine
DX: R60.0 Localized edema (principal); J45.909 Unspecified asthma, uncomplicated; I25.2 Old myocardial infarction; I10 Essential (primary) hypertension; Z95.1 Presence of aortocoronary bypass graft; F17.200 Nicotine dependence, unspecified, uncomplicated; Z88.1 Allergy status to other antibiotic agents; Z88.2 Allergy status to sulfonamides; Z88.8 Allergy status to other drugs, medicaments and biological substances; Z79.82 Long term (current) use of aspirin; Z79.899 Other long term (current) drug therapy
CPT/HCPCS: 71010; 80053; 85025; 93005; 93970; 99285; A9270-GY